=== PATIENT | female | born 1935 | race Hispanic/Latino ===

== ENCOUNTER → 2017-04-27 | Outpatient (CLI) | payer MEDICARE ==
[~2017-04-27] MED LIST: AEC81 PO; ALEN70TA47 PO; ATOR40TA71 PO; BUSP5TAB3 PO; CARV6.25 PO; CLOP75TA14 PO; CYCL30DR OU; ESOM40CA54 PO; FLUT16H NASAL; ISOS60TA4 PO; MELO-106 PO; NITR0.4T SL; OXYB10TA PO; PANT20TA12 PO; RAMI5CAP21 PO; SOLI5 PO; TRAM50TA4 PO
== END | disposition home or self-care (01) ==
LOC: SHCH 13:00
PROVIDERS: ATTEND Internal Medicine Cardiovascular Disease
DX: I51.7 Cardiomegaly (principal)
CPT/HCPCS: 93306

== ENCOUNTER 2017-06-27 06:08 | Inpatient (IN) | payer MEDICARE ==
[2017-06-24 13:27] VITALS: BP 184/53
[2017-06-24 13:48] LABS: APPEARANCE,URINE Cloudy (CLEAR); BILIRUBIN,URINE Negative (NEGATIVE); COLOR,URINE Yellow (YELLOW); GLUCOSE, URINE (UA) Negative (NEGATIVE); KETONES,URINE Negative (NEGATIVE); LEUKOCYTE ESTERASE ,URINE Moderate (NEGATIVE); NITRATE,URINE Positive (NEGATIVE); OCCULT BLOOD,URINE Negative (NEGATIVE); PH,URINE 6.5 (5.0-8.0); PROTEIN,URINE Negative (NEGATIVE)
[2017-06-24 13:54] LABS: BASOPHILS % (AUTO) 0.3 % (0.0-5.0); EOSINOPHILS % (AUTO) 1.8 % (0.0-8.0); HEMATOCRIT 32.9 % (36-48); LYMPHOCYTES % (AUTO) 28.5 % (21.0-51.0); MEAN CORPUSCULAR HEMOGLOBIN 31.2 pg (27.0-33.0); MEAN CORPUSCULAR HGB CONC 33.6 g/dL (32.0-36.0); MEAN CORPUSCULAR VOLUME 92.8 fL (79-99); NEUTROPHILS % (AUTO) 61.4 % (40.0-77.0); PLATELET COUNT (AUTO) 264 K/uL (130-400); RED BLOOD CELL COUNT(AUTO) 3.55 MIL/uL (4.00-5.50); RED CELL DISTRIBUTION WIDTH 13.9 % (11.0-15.5); WHITE BLOOD COUNT (AUTO) 6.1 K/uL (4.8-10.8)
[2017-06-24 14:04] LABS: INR 0.97 (0.85-1.15); PARTIAL THROMBOPLASTIN TIME 25.2 SEC (26.3-35.5); POTASSIUM 4.5 mmol/L (3.5-5.1); PROTHROMBIN TIME 10.2 SEC (9.6-11.6)
[2017-06-24 14:23] LABS: BACTERIA,URINE Many /HPF (None Seen); RBC,URINE 0-1 /HPF (0-1); SQUAMOUS EPITHELIAL CELL,UR Rare /HPF (0-2)
[2017-06-27] VITALS (14 sets, daily range): BP systolic 119–163; BP diastolic 42–100
[~2017-06-27] VITALS: Ht 144.8 cm; Wt 52.6 kg
[~2017-06-27 06:08] MED LIST changes: -CYCL30DR OU; -ESOM40CA54 PO; -FLUT16H NASAL; -SOLI5 PO
[2017-06-27] MEDS ORDERED: SODIUM CHLORIDE 0.9% 1000ML 1,000 ML IV ONE (06:22)
[2017-06-27] MEDS: CEFTRIAXONE SODIUM 1 GM IV SCH ×2 (06:30→09:00)
[2017-06-27] MEDS ORDERED: LIDOCAINE HCL-MPF 2% 5ML VIAL ONE ×4 (09:17→10:02)
[2017-06-27] MEDS ORDERED: BIVALIRUDIN 250 MG/VIAL IV ONE (09:17)
[2017-06-27] MEDS ORDERED: ISOVUE-370 50ML VIAL IV ONE (09:17)
[2017-06-27] MEDS ORDERED: NITROGLYCERIN 5 MG/ML 10 ML VIAL IV ONE (09:17)
[2017-06-27] MEDS ORDERED: VERAPAMIL HCL 2.5 MG/ML VIAL ONE (09:17)
[2017-06-27] MEDS ORDERED: IOPAMIDOL-370 100 ML VIAL IV ONE (09:19)
[2017-06-27] MEDS ORDERED: HEPARIN SODIUM 1000UNIT/ML 10ML VIAL ONE (09:57)
[2017-06-27] MEDS ORDERED: FENTANYL CITRATE PF 50 MCG/1 ML 2ML VIAL ONE (10:03)
[2017-06-27] MEDS ORDERED: MIDAZOLAM HCL 1 MG/ML 2ML VIAL ONE (10:03)
[2017-06-27] MEDS ORDERED: GLUCAGON 1MG KIT 1 MG ML IM PRN (10:30)
[2017-06-27] MEDS ORDERED: HYDRALAZINE HCL 20 MG/ML VIAL IV PRN (10:30)
[2017-06-27] MEDS ORDERED: ACETAMINOPHEN-CODEINE 300/30MG TAB PO PRN (10:30)
[2017-06-27] MEDS ORDERED: DEXTROSE 50%-WATER 50 ML DISP.SYRIN IV PRN (10:30)
[2017-06-27] MEDS ORDERED: METOPROLOL TARTRATE 1 MG/ML 5ML VIAL IV PRN (10:30)
[2017-06-27] MEDS ORDERED: NITROGLYCERIN 0.4 MG SL TAB SL PRN (10:30)
[2017-06-27] MEDS ORDERED: SODIUM CHLORIDE 0.9% 1000ML 1,000 ML IV SCH (10:30)
[2017-06-27] MEDS: WATER FOR INJECTION,STERILE 20 ML VIAL IJ SCH (15:00)
[2017-06-27] MEDS: CEFUROXIME SODIUM 1.5 GM VIAL IVP SCH (15:00)
[2017-06-27 15:22] LABS: BASOPHILS % (AUTO) 0.2 % (0.0-5.0); EOSINOPHILS % (AUTO) 1.7 % (0.0-8.0); HEMATOCRIT 32.8 % (36-48); LYMPHOCYTES % (AUTO) 17.3 % (21.0-51.0); MEAN CORPUSCULAR HEMOGLOBIN 32.2 pg (27.0-33.0); MEAN CORPUSCULAR HGB CONC 34.7 g/dL (32.0-36.0); MEAN CORPUSCULAR VOLUME 92.8 fL (79-99); MONOCYTES % (AUTO) 6.9 % (3.0-13.0); NEUTROPHILS % (AUTO) 73.9 % (40.0-77.0); PLATELET COUNT (AUTO) 246 K/uL (130-400); RED BLOOD CELL COUNT(AUTO) 3.54 MIL/uL (4.00-5.50); RED CELL DISTRIBUTION WIDTH 13.4 % (11.0-15.5); WHITE BLOOD COUNT (AUTO) 5.8 K/uL (4.8-10.8)
[2017-06-27 15:35] LABS: HEMOGLOBIN A1C 5.9 % (4.0-6.0); INR 0.97 (0.85-1.15); PARTIAL THROMBOPLASTIN TIME 24.9 SEC (26.3-35.5); PROTHROMBIN TIME 10.2 SEC (9.6-11.6)
[2017-06-27 15:39] LABS: CREATININE 0.9 mg/dL (0.5-1.5); POTASSIUM 4.3 mmol/L (3.5-5.1)
[2017-06-27] MEDS ORDERED: ACETAMINOPHEN 325 MG TAB PO PRN (23:30)
[2017-06-27] MEDS ORDERED: POTASSIUM CHLORIDE 20MEQ/100ML 100 ML IV PRN (23:30)
[2017-06-27] MEDS ORDERED: POTASSIUM CHLORIDE 10% ELIXIR 20 MEQ/15 ML UDCUP PO PRN (23:30)
[2017-06-27] MEDS ORDERED: POTASSIUM CHLORIDE 20 MEQ ERTAB PO PRN (23:30)
[2017-06-28 03:30] VITALS: BP 143/59
[2017-06-28 03:54] LABS: BASOPHILS % (AUTO) 0.4 % (0.0-5.0); EOSINOPHILS % (AUTO) 2.1 % (0.0-8.0); HEMATOCRIT 31.2 % (36-48); LYMPHOCYTES % (AUTO) 24.5 % (21.0-51.0); MEAN CORPUSCULAR HEMOGLOBIN 31.2 pg (27.0-33.0); MEAN CORPUSCULAR VOLUME 91.8 fL (79-99); MONOCYTES % (AUTO) 9.7 % (3.0-13.0); NEUTROPHILS % (AUTO) 63.3 % (40.0-77.0); PLATELET COUNT (AUTO) 230 K/uL (130-400); RED CELL DISTRIBUTION WIDTH 13.6 % (11.0-15.5); WHITE BLOOD COUNT (AUTO) 5.6 K/uL (4.8-10.8)
[2017-06-28 04:14] LABS: CREATININE 0.9 mg/dL (0.5-1.5); POTASSIUM 4.3 mmol/L (3.5-5.1)
[2017-06-28] MEDS ORDERED: TRAMADOL HCL 50 MG TABLET PO PRN (08:00)
[2017-06-28] MEDS ORDERED: NITROGLYCERIN 0.4 MG SL TAB SL SCH (08:00)
[2017-06-28] MEDS ORDERED: GLYCOPYRROLATE 0.2 MG/ML 5 ML VIAL ONE (08:16)
[2017-06-28] MEDS ORDERED: ESMOLOL HCL 10 MG/ML 10 ML VIAL ONE (08:16)
[2017-06-28] MEDS ORDERED: EPINEPHRINE 1 MG/ML AMPULE ONE ×2 (08:16→15:18)
[2017-06-28] MEDS ORDERED: NEOSTIGMINE 5MG/5ML SYR IV ONE (08:16)
[2017-06-28] MEDS ORDERED: MILRINONE-D5W 20 MG/100 ML 0 ML IV ONE (08:16)
[2017-06-28] MEDS ORDERED: PROTAMINE SULFATE 10 MG/ML 25ML VIAL IV ONE (08:16)
[2017-06-28] MEDS ORDERED: AMINOCAPROIC ACID 250 MG/ML 20 ML VIAL IV ONE (08:16)
[2017-06-28] MEDS ORDERED: PROPOFOL 10 MG/ML 20ML VIAL IV ONE (08:16)
[2017-06-28] MEDS ORDERED: HEPARIN SODIUM 1000UNIT/ML 10ML VIAL ONE ×2 (08:16→09:54)
[2017-06-28] MEDS ORDERED: ROCURONIUM BROMIDE 10MG/1ML 5ML VL ONE ×2 (08:16→14:16)
[2017-06-28] MEDS ORDERED: LIDOCAINE PF 2% 5ML ABBOJECT ONE (08:16)
[2017-06-28] MEDS ORDERED: NOREPINEPHRINE BITARTRATE 1 MG/1 ML ML IV ONE (08:16)
[2017-06-28] MEDS ORDERED: MIDAZOLAM HCL 1 MG/ML 5ML VIAL ONE ×2 (08:17→17:00)
[2017-06-28] MEDS ORDERED: SODIUM CHLORIDE 0.9% 1000ML 1,000 ML IV ONE ×2 (08:18→11:38)
[2017-06-28] MEDS ORDERED: FENTANYL CITRATE PF 50 MCG/1 ML 5ML AMP IV ONE ×2 (08:20→14:30)
[2017-06-28] MEDS ORDERED: NITROGLYCERIN 50 MG/D5% WATER 1 BOT ONE ×2 (08:26→16:12)
[2017-06-28] MEDS ORDERED: OCTYL 2-CYANOACRYLATE 1 EACH TP ONE (08:27)
[2017-06-28] MEDS ORDERED: EPINEPHRINE 1 MG/ML 30ML VIAL IJ ONE (08:27)
[2017-06-28] MEDS ORDERED: BACITRACIN 50,000 UNIT VIAL ONE (08:27)
[2017-06-28] MEDS ORDERED: PAPAVERINE HCL 30 MG/ML 2ML VIAL ONE (08:27)
[2017-06-28] MEDS ORDERED: MIDAZOLAM HCL 1 MG/ML 2ML VIAL ONE (08:55)
[2017-06-28] MEDS: CEFTRIAXONE SODIUM 1 GM IV SCH ×2 (08:58→09:00)
[2017-06-28 08:59] VITALS: BP 157/65
[2017-06-28] MEDS: CEFUROXIME SODIUM 1.5 GM VIAL IVP SCH ×2 (08:59→09:00)
[2017-06-28] MEDS ORDERED: CARVEDILOL 6.25 MG TABLET PO SCH (09:00)
[2017-06-28] MEDS: WATER FOR INJECTION,STERILE 20 ML VIAL IJ SCH (09:00)
[2017-06-28] MEDS ORDERED: BUSPIRONE HCL 5 MG TABLET PO SCH (09:00)
[2017-06-28] MEDS ORDERED: ASPIRIN 81 MG EC TAB PO SCH (09:00)
[2017-06-28] MEDS ORDERED: OXYBUTYNIN 5 MG TAB.SR.24H PO SCH (09:00)
[2017-06-28] MEDS ORDERED: PANTOPRAZOLE SODIUM 40 MG TABLET.DR PO SCH (09:00)
[2017-06-28 09:42] LABS: ABG BASE EXCESS -0.4 mmol/L (-2.0-3.0); ABG HCO3 24.7 mmol/L (21.0-28.0); ABG OXYGEN SATURATION 99.2 % (95.0-99.0); ABG PCO2 43 mmHg (32-45)
[2017-06-28] MEDS ORDERED: THROMBIN-JMI 5000 UNIT/VIAL TP ONE (09:54)
[2017-06-28] MEDS ORDERED: DEXTROSE 50%-WATER 50 ML DISP.SYRIN IV PRN (11:30)
[2017-06-28] MEDS ORDERED: ACETAMINOPHEN 325 MG TAB PO PRN (11:30)
[2017-06-28] MEDS ORDERED: CALCIUM GLUCONATE 1 GM in SODIUM CHLORIDE 0.9% 50 ML IV PRN (11:30)
[2017-06-28] MEDS ORDERED: SODIUM CHLORIDE 0.9% 10 ML VIAL IVP PRN (11:30)
[2017-06-28] MEDS ORDERED: ONDANSETRON HCL 4 MG/2 ML VIAL IV PRN (11:30)
[2017-06-28] MEDS ORDERED: PROPOFOL 1000 MG/100 ML 100 ML IV PRN (11:30)
[2017-06-28] MEDS ORDERED: AMINOCAPROIC ACID 15,000 MG in SODIUM CHLORIDE 0.9% 250 ML IV SCH (11:30)
[2017-06-28] MEDS ORDERED: NOREPINEPHRINE 4MG/NS 250ML 250 ML IV PRN (11:30)
[2017-06-28] MEDS ORDERED: HYDROCODONE/ACETAMINOPHEN 5/325 MG TAB PO PRN ×2 (11:30)
[2017-06-28] MEDS ORDERED: POTASSIUM CHLORIDE 20MEQ/100ML 100 ML IV PRN (11:30)
[2017-06-28] MEDS ORDERED: EPINEPHRINE 2 MG in SODIUM CHLORIDE 0.9% 250 ML IV PRN (11:30)
[2017-06-28] MEDS ORDERED: SODIUM CHLORIDE 0.9% 250 ML IV PRN (11:30)
[2017-06-28] MEDS ORDERED: GLUCAGON 1MG KIT 1 MG ML IM PRN (11:30)
[2017-06-28] MEDS ORDERED: MORPHINE SULFATE 4 MG/1ML SYG IV PRN (11:30)
[2017-06-28] MEDS ORDERED: SODIUM CHLORIDE 0.9% 1000ML 1,000 ML IV SCH (11:30)
[2017-06-28] MEDS ORDERED: NITROGLYCERIN 50 MG/D5% WATER 250 BOT IV SCH (11:30)
[2017-06-28] MEDS ORDERED: ALBUMIN (HUMAN) 5% 250 ML IV PRN (11:30)
[2017-06-28] MEDS ORDERED: SODIUM CHLORIDE 0.9% 500ML 500 ML IV SCH (11:30)
[2017-06-28] MEDS ORDERED: MORPHINE SULFATE 2 MG/ML 1ML SYG IV PRN (11:30)
[2017-06-28] MEDS ORDERED: INSULIN REGULAR, HUMAN 3ML 100 UNIT in SODIUM CHLORIDE 0.9% 99 ML IV SCH ×2 (11:30)
[2017-06-28] MEDS ORDERED: SODIUM BICARB 8.4% 50ML SYRINGE IV PRN (11:30)
[2017-06-28] MEDS ORDERED: POTASSIUM PHOS 15 mMOL+NS250ML 250 ML IV PRN (11:30)
[2017-06-28] MEDS ORDERED: MAGNESIUM 2GM PREMIX 50ML 50 ML IV PRN (11:30)
[2017-06-28] MEDS ORDERED: NICARDIPINE HCL 100 MG in SODIUM CHLORIDE 0.9% 60 ML IV PRN (11:30)
[2017-06-28] MEDS ORDERED: ACETAMINOPHEN 650 MG SUPPOSITORY RC PRN (11:30)
[2017-06-28] MEDS ORDERED: SODIUM BICARB 50MEQ 50ML VIAL ONE ×6 (11:47→17:28)
[2017-06-28] MEDS ORDERED: CALCIUM CHLORIDE 100 MG/ML 10 ML SYG IVP ONE (12:00)
[2017-06-28] MEDS ORDERED: AMIODARONE HCL 50 MG/ML 3 ML VIAL IV ONE (12:00)
[2017-06-28] MEDS ORDERED: LIDOCAINE 2G/250ML 250 ML IV ONE (12:00)
[2017-06-28] MEDS ORDERED: EPINEPHRINE 0.1 MG/ML 10 ML SYG IVP ONE ×2 (12:00)
[2017-06-28] MEDS ORDERED: CEFUROXIME 1.5GM+NS 100ML 100 ML IV SCH ×2 (12:00→19:30)
[2017-06-28] MEDS ORDERED: LIDOCAINE PF 2% 5ML ABBOJECT IVP ONE (12:00)
[2017-06-28] MEDS ORDERED: ATROPINE SULFATE 0.1 MG/ML 10 ML SYG IVP ONE (12:00)
[2017-06-28] MEDS ORDERED: SODIUM BICARB 8.4% 50ML SYRINGE IVP ONE (12:00)
[2017-06-28] MEDS ORDERED: MAGNESIUM SULFATE 1 GM/2 ML VIAL IM ONE (12:00)
[2017-06-28 12:06] LABS: ABG HCO3 33.3 mmol/L (21.0-28.0); ABG OXYGEN SATURATION 98.7 % (95.0-99.0); ABG PCO2 33 mmHg (32-45)
[2017-06-28 12:28] LABS: ABG BASE EXCESS 0.8 mmol/L (-2.0-3.0); ABG HCO3 24.5 mmol/L (21.0-28.0); ABG OXYGEN SATURATION 98.6 % (95.0-99.0); ABG PCO2 34 mmHg (32-45)
[2017-06-28 12:53] LABS: ABG HCO3 19.9 mmol/L (21.0-28.0); ABG OXYGEN SATURATION 98.7 % (95.0-99.0); ABG PCO2 29 mmHg (32-45)
[2017-06-28] MEDS ORDERED: CEFUROXIME SODIUM 1.5 GM VIAL ONE (13:12)
[2017-06-28 13:24] LABS: ABG BASE EXCESS 2.7 mmol/L (-2.0-3.0); ABG HCO3 25.7 mmol/L (21.0-28.0); ABG OXYGEN SATURATION 98.7 % (95.0-99.0); ABG PCO2 34 mmHg (32-45)
[2017-06-28 13:57] LABS: ABG BASE EXCESS 1.5 mmol/L (-2.0-3.0); ABG OXYGEN SATURATION 98.8 % (95.0-99.0); ABG PCO2 35 mmHg (32-45)
[2017-06-28] MEDS ORDERED: PROTAMINE SULFATE 10 MG/ML 5 ML VIAL ONE ×2 (14:01→14:15)
[2017-06-28] MEDS ORDERED: SODIUM BICARB 8.4% 50ML SYRINGE ONE (14:17)
[2017-06-28] MEDS ORDERED: EPHEDRINE SULFATE 50 MG/ML AMPULE ONE (14:32)
[2017-06-28 15:15] LABS: ABG BASE EXCESS 26.6 mmol/L (-2.0-3.0); ABG HCO3 49.1 mmol/L (21.0-28.0); ABG OXYGEN SATURATION 98.4 % (95.0-99.0); ABG PCO2 41 mmHg (32-45)
[2017-06-28 15:25] LABS: ABG BASE EXCESS 10.4 mmol/L (-2.0-3.0); ABG OXYGEN SATURATION 98.7 % (95.0-99.0); ABG PCO2 31 mmHg (32-45)
[2017-06-28] MEDS ORDERED: MAGNESIUM SULFATE 1 GM/2 ML VIAL ONE (16:08)
[2017-06-28 16:14] LABS: ABG BASE EXCESS -6.1 mmol/L (-2.0-3.0); ABG HCO3 17.7 mmol/L (21.0-28.0); ABG OXYGEN SATURATION 98.4 % (95.0-99.0); ABG PCO2 29 mmHg (32-45)
[2017-06-28 16:56] LABS: ABG BASE EXCESS -13.9 mmol/L (-2.0-3.0); ABG HCO3 12.8 mmol/L (21.0-28.0); ABG OXYGEN SATURATION 98.6 % (95.0-99.0); ABG PCO2 33 mmHg (32-45)
[2017-06-28 17:26] LABS: ABG BASE EXCESS -6.2 mmol/L (-2.0-3.0); ABG HCO3 17.4 mmol/L (21.0-28.0); ABG OXYGEN SATURATION 98.9 % (95.0-99.0); ABG PCO2 28 mmHg (32-45)
[2017-06-28] MEDS ORDERED: INSULIN HUMULIN R 100 UNIT/ML 3ML ONE (17:28)
[2017-06-28] MEDS ORDERED: DEXTROSE 50%-WATER 50 ML DISP.SYRIN IV ONE (17:28)
[2017-06-28 17:38] LABS: ABG BASE EXCESS 14.2 mmol/L (-2.0-3.0); ABG HCO3 36.7 mmol/L (21.0-28.0); ABG OXYGEN SATURATION 99.5 % (95.0-99.0); ABG PCO2 37 mmHg (32-45)
[2017-06-28] MEDS ORDERED: CEFUROXIME SODIUM 1.5 GM VIAL IVP SCH (19:30)
[2017-06-28] MEDS ORDERED: ATORVASTATIN CALCIUM 40 MG TABLET PO SCH (21:00)
[2017-06-29] MEDS ORDERED: PANTOPRAZOLE SODIUM 40 MG TABLET.DR PO SCH (09:00)
== END 2017-06-28 18:15 | disposition expired | DRG 234 ==
LOC: DAH 06:08 → DAHIP 06:09 → DAH 06:09 → 2CH 15:38 → 2BH 19:20 → 2CV 06-28 09:04
PROVIDERS: ADMIT Internal Medicine; ATTEND Internal Medicine
PROC: 4A023N7 Measurement of Cardiac Sampling and Pressure, Left Heart, Percutaneous Approach (ICD-10-PCS; principal; 2017-06-27)
PROC: B2151ZZ Fluoroscopy of Left Heart using Low Osmolar Contrast (ICD-10-PCS; 2017-06-27)
PROC: B2111ZZ Fluoroscopy of Multiple Coronary Arteries using Low Osmolar Contrast (ICD-10-PCS; 2017-06-27)
PROC: 5A02210 Assistance with Cardiac Output using Balloon Pump, Continuous (ICD-10-PCS; 2017-06-28)
PROC: 06BQ4ZZ Excision of Left Saphenous Vein, Percutaneous Endoscopic Approach (ICD-10-PCS; 2017-06-28)
PROC: 30233R1 Transfusion of Nonautologous Platelets into Peripheral Vein, Percutaneous Approach (ICD-10-PCS; 2017-06-28)
PROC: 30233N1 Transfusion of Nonautologous Red Blood Cells into Peripheral Vein, Percutaneous Approach (ICD-10-PCS; 2017-06-28)
PROC: B2131ZZ Fluoroscopy of Multiple Coronary Artery Bypass Grafts using Low Osmolar Contrast (ICD-10-PCS; 2017-06-28)
PROC: 021109W Bypass Coronary Artery, Two Arteries from Aorta with Autologous Venous Tissue, Open Approach (ICD-10-PCS; 2017-06-28 08:51)
DX: I25.119 Atherosclerotic heart disease of native coronary artery with unspecified angina pectoris (principal); I50.32 Chronic diastolic (congestive) heart failure; I11.0 Hypertensive heart disease with heart failure; I48.91 Unspecified atrial fibrillation; N39.0 Urinary tract infection, site not specified; I49.01 Ventricular fibrillation; E78.5 Hyperlipidemia, unspecified; I46.9 Cardiac arrest, cause unspecified; I65.29 Occlusion and stenosis of unspecified carotid artery; K21.9 Gastro-esophageal reflux disease without esophagitis; M19.90 Unspecified osteoarthritis, unspecified site; M81.0 Age-related osteoporosis without current pathological fracture; Z82.49 Family history of ischemic heart disease and other diseases of the circulatory system; Z83.3 Family history of diabetes mellitus; Z95.1 Presence of aortocoronary bypass graft
CPT/HCPCS: 32551; 36415; 71045; 80048; 80061; 81001; 82330; 82435; 82803; 82947; 83036; 83605; 84132; 84295; 85018; 85025; 85347; 85610; 85730; 86850; 86900; 86901; 86922; 92950; 93005; 93458; 93880; 94002; 94010; 99152; 99153; A4218; A4606; A7048; C1769; C1894; C9113; J0171; J0282; J0461; J0583; J0696; J0697; J1644; J1815; J2001; J2250; J2260; J2440; J2704; J2710; J2720; J3010; J3475; J3490; J7030; J7040; J7070; J7120; P9016; P9034; Q9967